=== PATIENT | female | born 1995 | race Hispanic/Latino ===

== ENCOUNTER 2018-01-03 12:02 | Emergency (ER) | payer BC ==
[~2018-01-03] VITALS: Ht 157.5 cm; Wt 52.2 kg
[2018-01-03] MEDS ORDERED: NEOMYCIN/POLYMYXIN/BACITRACIN 15 GM TUBE TOP ONE (12:15)
[2018-01-03] MEDS ORDERED: HYDROCODONE/APAP 7.5MG-325MG 1 EA TAB PO PRN (12:15)
== END 2018-01-03 13:55 | disposition home or self-care (01) ==
LOC: ER 12:02
DX: T25.222A Burn of second degree of left foot, initial encounter (principal); T25.221A Burn of second degree of right foot, initial encounter; T25.212A Burn of second degree of left ankle, initial encounter; T25.211A Burn of second degree of right ankle, initial encounter; T31.0 Burns involving less than 10% of body surface; X10.2XXA Contact with fats and cooking oils, initial encounter; Y93.89 Activity, other specified; Y99.0 Civilian activity done for income or pay; E28.2 Polycystic ovarian syndrome; N80.9 Endometriosis, unspecified
CPT/HCPCS: 99284